=== PATIENT | female | born 1955 | race African-American/Black ===

== ENCOUNTER 2023-08-24 20:18 | Emergency (ER) | payer OTHER ==
[2023-08-24 20:26] VITALS: RESP 18; BMI 27.7
[2023-08-24 21:49] LABS: BASO % 0.4 % (0-2.0); EOS % 0.6 % (0-4.5); HEMATOCRIT 43.8 % (32.4-45.2); HEMOGLOBIN 14.6 GM/dL (10.7-15.3); MCH 26.2 pg (25.7-33.7); MCHC 33.4 g/dl (32.0-36.0); MEAN CELL VOLUME 78.3 fl (80-96); MEAN PLT VOLUME 9.6 fl (7.5-11.1); MONO % 9.6 % (3.8-10.2); NEUT % 69.4 % (42.8-82.8); PLATELET COUNT 147 10^3/uL (134-434); RDW 14.6 % (11.6-15.6); WHITE BLOOD COUNT 9.8 K/mm3 (4.0-10.0)
[2023-08-24 21:50] LABS: URINE APPEARANCE CLEAR; URINE BILIRUBIN NEGATIVE (NEGATIVE); URINE COLOR YELLOW; URINE GLUCOSE (UA) NEGATIVE (NEGATIVE); URINE KETONE TRACE (NEGATIVE); URINE LEUK ESTERASE NEGATIVE (NEGATIVE); URINE NITRITE NEGATIVE (NEGATIVE); URINE PROTEIN NEGATIVE (NEGATIVE)
[2023-08-24 22:03] LABS: INR 1.09 (0.83-1.09); PROTHROMBIN TIME (PATIENT) 12.6 SEC (9.7-13.0)
[2023-08-24 22:06] LABS: ACTIVATED PTT 23.7 SECONDS (25.2-36.5)
[2023-08-24 22:17] LABS: POTASSIUM 4.8 mmol/L (3.5-5.1)
[2023-08-24 22:19] LABS: CALCIUM 9.1 mg/dL (8.5-10.1)
[2023-08-24 22:20] LABS: ALBUMIN 3.4 g/dl (3.4-5.0); BLOOD UREA NITROGEN 11.1 mg/dL (7-18); MAGNESIUM 2.3 mg/dL (1.8-2.4)
[2023-08-24 22:23] LABS: CREATININE 0.9 mg/dL (0.55-1.3)
[2023-08-24 22:24] LABS: BILIRUBIN,TOTAL 0.3 mg/dL (0.2-1)
[2023-08-24] MEDS ORDERED: SODIUM CHLORIDE 0.9% 1000 ML INFUS.BAG IV ONE (23:47)
[2023-08-25] MEDS ORDERED: LIDOCAINE 4% PATCH TP ONE ×2 (01:39→01:42)
[2023-08-25] MEDS ORDERED: ACETAMINOPHEN 325 MG TABLET (FP) ONE ×2 (01:42→01:50)
[2023-08-25] MEDS: ACETAMINOPHEN 325 MG TABLET (FP) PO ONE ×2 (01:44→01:55)
[2023-08-25 01:58] VITALS: BP 125/67; PULSE 56; TEMP 98
[2023-08-25] MEDS ORDERED: LIDOCAINE PATCH REMOVAL MC SCH (22:00)
== END 2023-08-25 02:32 | disposition home or self-care (01) ==
LOC: JER 20:18
DX: K59.00 Constipation, unspecified (principal); R10.13 Epigastric pain; Z20.822 Contact with and (suspected) exposure to COVID-19
CPT/HCPCS: 0241U-QW; 36415; 71045-TC-FY; 74177-TC; 80053; 81003; 83690; 83735; 84484; 85025; 85610; 85730; 87086; 93005; 93010; 99285-25; Q9967